=== PATIENT | male | born 1975 | race Caucasian/White ===

== ENCOUNTER → 2020-12-08 | Outpatient (CLI) | payer MEDICARE, MEDICAID ==
[~2020-12-08] MED LIST: HOLD METFORMIN - RECEIVED CONTRAST 20 ML VIAL IV SCH
[2020-12-08] MEDS: IOHEXOL 350 MG/ML 100 ML (OMNIPAQUE 350) VIAL IV ONE (09:29)
[2020-12-08] MEDS: CATHETER FLUSH 10 ML SYR IV PRN (09:30)
[2020-12-08] MEDS: NS 100 ML (IVPB) BAG IV ONE (09:30)
--- NOTE | 2020-12-08 11:07 | Diagnostic Imaging Report ---
PROCEDURE: CT abdomen and pelvis with contrast. TECHNIQUE: Multiple contiguous axial images were obtained through the abdomen and pelvis after administration of intravenous contrast. Auto Exposure Controls were utilized during the CT exam to meet ALARA standards for radiation dose reduction. All CT scans use one or more of the following dose optimizing techniques: automated exposure control, MA and/or KvP adjustment based on patient size and exam type or iterative reconstruction. INDICATION: Scrotal mass and possible hernia. No prior studies are available for comparison. Lung bases are clear. The liver and gallbladder are unremarkable. There is no biliary ductal dilatation. Pancreas and spleen are unremarkable. Left adrenal glands are unremarkable. Low density mass in the right adrenal gland is noted measuring 2.5 cm, most consistent with an adenoma. Right kidney is unremarkable. Left kidney contains a 2.9 cm low-attenuation lesion consistent with a cyst. No calculi or hydronephrosis is identified. Aorta is nonaneurysmal. No central retroperitoneal or mesenteric lymphadenopathy is detected. There is a large right inguinal hernia containing bowel loops. There appears to be a portion of the transverse colon entering the scrotal sac medially and exiting laterally. No definite strangulation is seen. There is no bowel obstruction. Small bowel loops are normal in caliber. There is no free fluid or fluid collection. Bladder is decompressed. Prostate is unremarkable. There are some mildly prominent iliac lymph nodes. A right external iliac node measures 2.4 x 1.5 cm. Left external iliac node measures 2.1 x 1.2 cm. Mildly prominent inguinal nodes are noted. The bony structures are nonacute. IMPRESSION: 1. Right adrenal low-density lesion suggestive of adenoma. 2. Left renal cyst. 3. Large right inguinal hernia with portions of the transverse colon entering the scrotal sac. No strangulation or bowel obstruction is identified. Dictated by: Dictated on workstation # [id number]
== END ==
LOC: RAD FS 08:57
PROVIDERS: ATTEND Surgery
DX: N50.89 Other specified disorders of the male genital organs (principal); E27.9 Disorder of adrenal gland, unspecified; N28.1 Cyst of kidney, acquired; K40.90 Unilateral inguinal hernia, without obstruction or gangrene, not specified as recurrent
CPT/HCPCS: 74177

== ENCOUNTER 2020-12-15 05:40 | Outpatient (CLI) | payer MEDICARE, MEDICAID ==
[~2020-12-15] VITALS: Ht 172.7 cm; Wt 150.6 kg
[2020-12-15] MEDS ORDERED: FLUT9.9S NS (12:46)
[2020-12-20] MEDS ORDERED: ACHYD1T PO (15:37)
== END 2020-12-15 12:48 | disposition home or self-care (01) ==
LOC: PREOP 05:40
PROVIDERS: ATTEND Surgery
DX: Z01.818 Encounter for other preprocedural examination (principal)

== ENCOUNTER 2020-12-20 09:09 | Day surgery (SDC) | payer MEDICARE, MEDICAID ==
[~2020-12-20] VITALS: Ht 172 cm; Wt 150.6 kg
[2020-12-20] VITALS (10 sets, daily range): BP systolic 106–136; BP diastolic 66–81
[~2020-12-20 09:09] MED LIST changes: +FLUT9.9S NS; -HOLD METFORMIN - RECEIVED CONTRAST 20 ML VIAL IV SCH
[2020-12-20] MEDS ORDERED: ceFAZolin 2 GM IV Premixed 50 ML IV ONE (09:15)
[2020-12-20] MEDS: LACTATED RINGERS 1,000 ML IV PRN ×2 (09:39→14:53)
[2020-12-20] MEDS ORDERED: LIDOCAINE/EPI 1%-1:100,000 (XYLOCAINE) 20ML ONE (10:19)
[2020-12-20] MEDS ORDERED: ROCURONIUM 10 MG/ML 5 ML SYRINGE IV ONE (13:53)
[2020-12-20] MEDS ORDERED: proPOfol 200 MG/20 ML (DIPRIVAN) VIAL IV ONE (13:53)
[2020-12-20] MEDS ORDERED: LIDOCAINE PF 2% 5 ML (XYLOCAINE) VIAL ONE (13:53)
[2020-12-20] MEDS ORDERED: LACTATED RINGERS 1,000 ML IV ONE (13:53)
[2020-12-20] MEDS ORDERED: ONDANSETRON 4 MG/2 ML (SDV) Z0FRAN ONE (13:53)
[2020-12-20] MEDS ORDERED: fentaNYL INJ 100 MCG/2 ML AMP ONE (13:54)
[2020-12-20] MEDS ORDERED: MIDAZOLAM 2 MG/2 ML (VERSED) VIAL ONE (13:54)
--- NOTE | 2020-12-20 14:08 | Progress Note-Pre Operative ---
Pre-Operative Progress Note H&P Reviewed The H&P was reviewed, patient examined and no changes noted. Time Seen by Provider: 13:31 Date H&P Reviewed: Dec 20, 2020 Time H&P Reviewed: 13:31 Pre-Operative Diagnosis: Incarcerated right inguinal hernia, site marked ALFONZO BERRY DO Dec 20, 2020 14:08
[2020-12-20] MEDS ORDERED: SEVOFLURANE (ULTANE) 15 ML INHAL SOLN ONE (15:12)
--- NOTE | 2020-12-20 15:36 | Progress Note-Post Operative ---
Post-Operative Progess Note Surgeon (s)/Weight Calculator (s) Surgeon ALFONZO BERRY DO Weight Calculator: [place] Pre-Operative Diagnosis Incarcerated right inguinal hernia, site marked Post-Operative Diagnosis Same Transverse colon and omentum in hernia with ischemic omentum Procedure & Operative Findings Date of Procedure 12/20/20 Procedure Performed/Findings Open Right inguinal hernia repair with almost total omentectomy DESCRIPTION OF PROCEDURE: The patient was taken to the operating suite, was prepped and draped in sterile fashion. Surgical pause was performed, site marked and agreed on. Local anesthetic was infiltrated in the right lower quadrant. Incision was made with a #15 blade and cautery used to dissect down to the external oblique, which was then opened down through the external ring. A very large firm cord was found, went into the hernia sac and started to reduce it. Had to use the Ligasure to come across some of the large vessels in the omentum. It took about 10-15 minutes of gentle pressure to deliver the hernia contents. It was the entire transverse colon and omentum. Omentum was ischemic in some parts and in "tatters"; elected to remove it completely with the Ligasure. This actually helped us push the colon back into the abdomen. Pt was also in trendelenberg to help get the colon back into the abdomen. The spermatic cord was then dissected around. A [place] drain was placed around it and there was a weakness in the floor present. The indirect hernia was then dissected off of spermatic cord. It was so large and deep into scrotum, elected to transect it. We also got out copious amounts of fluid from the scrotum. The hernia sac was then closed with a pursestring 0-Vicryl and then ligated with an 0-Vicryl. Using ProGrip right sidede mesh, this was secured at Dimitri's ligament and then incorporated around the spermatic cord and placed under the external oblique. Hemostasis was achieved. The external oblique was then closed recreating the external ring and then the subcutaneous tissues were then reapproximated using 3-0 Vicryl and skin was then closed using 4-0 Monocryl in a subcuticular fashion. The abdomen was then washed and dried and Skin Affix was placed over the incision. The patient tolerated procedure well without any complications and taken to recovery room in stable condition. Dr. Vickers assisted on this case helping to identify anatomy, hold anatomy out of the way and close incisions. Anesthesia Type GET Estimated Blood Loss Estimated blood loss (mL): minimal Specimens/Packing Specimens Removed omentum (hernia contents) hernia sac ALFONZO BERRY DO Dec 20, 2020 15:36
[2020-12-20] MEDS ORDERED: ACHYD1T PO (15:37)
--- NOTE | 2020-12-20 15:39 | Discharge Inst-Surgical ---
Discharge Inst-Surgical Depart Medication/Instructions New, Converted or Re-Newed RX: RX Given to Pt/Family Patient Instructions Follow up Appt: Make appointment for 1 week. [phone] Instructions: No lifting greater than 20 pounds. No strenuous activity. May shower in 24 hours, no tub bath or soaking. Use incentive spirometer at home as directed. No Smoking Skin/Wound Care: May remove bandages in am. You need to leave the Dermabond on incision it will fall off on it's own. Symptoms to Report: Appetite Changes, Extremity Discoloration, Numbness/Tingling, Swelling Increased, Bleeding Excessive, Eyesight Changes, Pain Increased, Urine Color Change, Constipation(Persistent), Fever over 101 degree F, Pain/Pressure in chest, Urinating Difficulty, Cough Up/Vomit Blood, Heart Beat Irreg/Pounding, Pain/Pressure in jaw, Cramps in feet or legs, Lightheadedness, Pain/Pressure in shoulder, Diarrhea(Persistent), Memory Changes Suddenly, Questions/Concerns, Weight gain consecutive days, Dizziness/Fainting, Nausea/Vomiting, Shortness of Breath, Weight gain over 2 pounds If questions or concerns contact your physician Or seek help at emergency department. Activity Activity as Tolerated: Yes Activity Instructions: Avoid Stress to Incision Driving Instructions: No Driving/Refer to Dr. Morales Discharge Diet: No Restrictions Diet After 24 Hours: Clear Liquid if Nauseous If Any Problems/Questions/Issu: Contact Your Physician Skin/Wound Care Infection Signs and Symptoms: Increased Redness, Foul Odor of Wound, Increased Drainage, Skin Itchy or Has a Rash, Increased Swelling, Temperature Above 101 F Bathing Instructions: Shower Stitches/Emilia/Dermabond Dis: ALFONZO Grewal DO Dec 20, 2020 15:39
[2020-12-20] MEDS ORDERED: morphine INJ 10 MG/ML 1ML (SYR OR VIAL) IVP ONE (15:45)
[2020-12-20] MEDS ORDERED: PROMETHAZINE INJ 25 MG/ML (PHENERGAN) AMP IVP ONE (15:45)
[2020-12-20] MEDS ORDERED: HYDROmorphone 2 MG/ML VIAL (DILAUDID) IV ONE (15:45)
[2020-12-20] MEDS ORDERED: ONDANSETRON 4 MG/2 ML (SDV) Z0FRAN IVP PRN (15:45)
--- NOTE | 2020-12-20 15:58 | Anesthesia-General Post-Op ---
General Patient Condition Mental Status/LOC: Same as Preop Cardiovascular: Satisfactory Nausea/Vomiting: Absent Respiratory: Satisfactory Pain: Controlled Complications: Absent Post Op Complications Complications None Follow Up Care/Instructions Patient Instructions None needed. Anesthesia/Patient Condition Patient Condition Patient is doing well, no complaints, stable vital signs, no apparent adverse anesthesia problems. No complications reported per nursing. ELENI FOSTER CRNA Dec 20, 2020 15:58
== END 2020-12-20 17:25 ==
LOC: SDC 09:09
PROVIDERS: ATTEND Surgery
DX: K40.31 Unilateral inguinal hernia, with obstruction, without gangrene, recurrent (principal); I99.8 Other disorder of circulatory system; E66.01 Morbid (severe) obesity due to excess calories; Z68.43 Body mass index [BMI] 50.0-59.9, adult; Z79.899 Other long term (current) drug therapy; Z80.9 Family history of malignant neoplasm, unspecified
CPT/HCPCS: 49507; 87081; 88302; C1781

== ENCOUNTER 2022-05-18 18:28 | Emergency (ER) | payer MEDICARE, MEDICAID ==
[~2022-05-18] VITALS: Ht 170.1 cm; Wt 150.6 kg
[~2022-05-18 18:28] MED LIST changes: +ACHYD1T PO
--- NOTE | 2022-05-18 18:35 | ED GI ---
General Stated Complaint: LRQ PAIN History of Present Illness Date Seen by Provider: May 18, 2022 Time Seen by Provider: 18:34 Initial Comments 46-year-old male with no significant PMH is here with complaints of right lower quadrant pain which began last night. Patient states that the pain is a 3/10 and is constant in nature. Patient is able to eat his meals with no difficulty. Denies fever, nausea and vomiting, diarrhea or constipation, chest pain. Allergies and Home Medications Allergies Coded Allergies: No Known Drug Allergies (Unverified , 12/20/20) Patient Home Medication List Home Medication List Reviewed: Yes Fluticasone Propionate (Flonase Allergy Relief) 9.9 Ml [place].susp, 1 SPRAY NS DAILY PRN for nasal congestion, (Reported) Entered as Reported by: ABHINAV ELIAS on 12/15/20 1246 Hydrocodone Bit/Acetaminophen (HYDROcodone/APAP 10/325 TABLET) 1 Ea Tab, 1 TAB PO Q6H Prescribed by: ALFONZO BERRY on 12/20/20 1537 Review of Systems Review of Systems Constitutional: no symptoms reported EENTM: No Symptoms Reported Respiratory: No Symptoms Reported Cardiovascular: No Symptoms Reported Gastrointestinal: See HPI, Abdominal Pain Genitourinary: No Symptoms Reported Musculoskeletal: no symptoms reported Skin: no symptoms reported Psychiatric/Neurological: No Symptoms Reported Endocrine: No Symptoms Reported Hematologic/Lymphatic: No Symptoms Reported Past Kzinvfw-Skeyfw-Gvzdqs Hx Seasonal Allergies Seasonal Allergies: Yes Past Medical History Surgeries: No Respiratory: No Cardiac: No Neurological: No Genitourinary: No Gastrointestinal: No Musculoskeletal: No Endocrine: No HEENT: No Cancer: No Psychosocial: No Integumentary: No Blood Disorders: No Physical Exam Vital Signs Vital Signs - First Documented 05/18/22 18:32 Temp 36.2 Pulse 109 Resp 16 B/P (MAP) 142/75 (97) Pulse Ox 96 O2 Delivery Room Air Capillary Refill : Height/Weight/BMI Height: '" Weight: lbs. oz. kg; 50.90 BMI Method: General Appearance: WD/WN, no apparent distress HEENT: PERRL/EOMI Neck: non-tender, full range of motion Respiratory: chest non-tender, lungs clear, normal breath sounds Cardiovascular: regular rate, rhythm Gastrointestinal: normal bowel sounds, soft, no organomegaly, tenderness (RLQ ) Extremities: normal range of motion Back: normal inspection, no CVA tenderness Neurologic/Psychiatric: alert, oriented x 3 Skin: normal color Lymphatic: no adenopathy Progress/Results/Core Measures Results/Orders Lab Results Laboratory Tests Test 05/18/22 18:40 05/18/22 19:23 Range/Units White Blood Count 15.1 H 4.3-11.0 10^3/uL Red Blood Count 4.76 4.30-5.52 10^6/uL Hemoglobin 13.7 13.3-17.7 g/dL Hematocrit 41 40-54 % Mean Corpuscular Volume 85 80-99 fL Mean Corpuscular Hemoglobin 29 25-34 pg Mean Corpuscular Hemoglobin Concent 34 32-36 g/dL Red Cell Distribution Width 13.2 10.0-14.5 % Platelet Count 177 130-400 10^3/uL Mean Platelet Volume 9.0 9.0-12.2 fL Immature Granulocyte % (Auto) 0 % Neutrophils (%) (Auto) 78 H 42-75 % Lymphocytes (%) (Auto) 15 12-44 % Monocytes (%) (Auto) 6 0-12 % Eosinophils (%) (Auto) 0 0-10 % Basophils (%) (Auto) 0 0-10 % Neutrophils # (Auto) 11.7 H 1.8-7.8 10^3/uL Lymphocytes # (Auto) 2.3 1.0-4.0 10^3/uL Monocytes # (Auto) 1.0 0.0-1.0 10^3/uL Eosinophils # (Auto) 0.1 0.0-0.3 10^3/uL Basophils # (Auto) 0.0 0.0-0.1 10^3/uL Immature Granulocyte # (Auto) 0.0 0.0-0.1 10^3/uL Neutrophils % (Manual) 82 % Lymphocytes % (Manual) 14 % Monocytes % (Manual) 4 % Sodium Level 140 135-145 MMOL/L Potassium Level 3.6 3.6-5.0 MMOL/L Chloride Level 102 98-107 MMOL/L Carbon Dioxide Level 27 21-32 MMOL/L Anion Gap 11 5-14 MMOL/L Blood Urea Nitrogen 8 7-18 MG/DL Creatinine 0.93 0.60-1.30 MG/DL Estimat Glomerular Filtration Rate 103 BUN/Creatinine Ratio 9 Glucose Level 135 H 70-105 MG/DL Calcium Level 9.3 8.5-10.1 MG/DL Corrected Calcium 9.3 8.5-10.1 MG/DL Total Bilirubin 1.1 H 0.1-1.0 MG/DL Aspartate Amino Transf (AST/SGOT) 10 5-34 U/L Alanine Aminotransferase (ALT/SGPT) 10 0-55 U/L Alkaline Phosphatase 7 L 40-136 U/L Total Protein 7.3 6.4-8.2 GM/DL Albumin 4.0 3.2-4.5 GM/DL Lipase 15 8-78 U/L Urine Color DARK YELLOW Urine Clarity SLIGHTLY CLOUDY Urine pH 7.5 5-9 Urine Specific [place] 1.020 1.016-1.022 Urine Protein NEGATIVE NEGATIVE Urine Glucose (UA) NEGATIVE NEGATIVE Urine Ketones NEGATIVE NEGATIVE Urine Nitrite NEGATIVE NEGATIVE Urine Bilirubin NEGATIVE NEGATIVE Urine Urobilinogen 4.0 < = 1.0 MG/DL Urine Leukocyte Esterase NEGATIVE NEGATIVE Urine RBC (Auto) TRACE-I H NEGATIVE Urine RBC 2-5 H /HPF Urine WBC NONE /HPF Urine Squamous Epithelial Cells NONE /HPF Urine Crystals PRESENT H /LPF Urine Amorphous Sediment LARGE [place] PHOSPHATE H /LPF Urine Bacteria MODERATE H /HPF Urine Casts NONE /LPF Urine Mucus LARGE H /LPF Urine Culture Indicated YES Urine Opiates Screen POSITIVE H NEGATIVE Urine Oxycodone Screen NEGATIVE NEGATIVE Urine Methadone Screen NEGATIVE NEGATIVE Urine Propoxyphene Screen NEGATIVE NEGATIVE Urine Barbiturates Screen NEGATIVE NEGATIVE Ur Tricyclic Antidepressants Screen NEGATIVE NEGATIVE Urine Phencyclidine Screen NEGATIVE NEGATIVE Urine Amphetamines Screen NEGATIVE NEGATIVE Urine Methamphetamines Screen NEGATIVE NEGATIVE Urine Benzodiazepines Screen NEGATIVE NEGATIVE Urine Cocaine Screen NEGATIVE NEGATIVE Urine Cannabinoids Screen NEGATIVE NEGATIVE My Orders Orders - PHILLIP OVALLE MD Cbc With Automated Diff (05/18/22 18:35) Comprehensive Metabolic Panel (05/18/22 18:35) Drug Screen Stat (Urine) (05/18/22 18:35) Lipase (05/18/22 18:35) Ua Culture If Indicated (05/18/22 18:35) Manual Differential (05/18/22 18:40) Ct Abdomen/Pelvis W (05/18/22 19:09) Iohexol Injection (Omnipaque 350 Mg/Ml 1 (05/18/22 19:30) Received Contrast (Hold Metformin- Contr (05/18/22 19:30) Sodium Chloride Flush (Catheter Flush Sy (05/18/22 19:30) Ns (Ivpb) (Sodium Chloride 0.9% Ivpb Bag (05/18/22 19:30) Urine Culture (05/18/22 19:23) Medications Given in ED Current Medications Medications Dose Ordered Sig/Bo Route Start Time Stop Time Status Last Admin Dose Admin Iohexol 100 ml ONCE ONCE IV 05/18/22 19:30 05/18/22 19:31 DC 05/18/22 19:35 100 ML Sodium Chloride 10 ml NEEDED PRN IV 05/18/22 19:30 05/18/22 19:35 10 ML Sodium Chloride 100 ml ONCE ONCE IV 05/18/22 19:30 05/18/22 19:31 DC 05/18/22 19:35 100 ML Vital Signs/I&O 05/18/22 18:32 Temp 36.2 Pulse 109 Resp 16 B/P (MAP) 142/75 (97) Pulse Ox 96 O2 Delivery Room Air Progress Progress Note : Progress Note 1. RLQ PAIN: INFLAMMATORY BOWEL SYNDROME: CROHN'S - CT ABD & PELVIS:Abnormal loop of distal ileum in the right lower abdominal quadrant, as described above. This does raise concern for underlying inflammatory bowel disease such as Crohn's. - CBC/ CMP/ Lipase: normal - UA: RBC positive - UDS:negative - NS IVF - Toradol 15mg iv STAT -Advised patient to follow-up with PCP within the next 3 to 7 days, and also to make a GI specialist appointment for follow-up. -The patient was seen in the ED, and treated appropriately to presentation at a specific point in time. Patient is informed that there is a possibility that disease and illness can evolve and change in acuity rapidly or slowly after patient is discharged from the ER. Precautionary advice given to the patient for immediate return to ER if symptoms worsen or do not resolve, and to seek emergency care sooner rather than later. Pt also advised on the importance of PCP follow up and compliance with management and follow up plan with PCP and/or specialist, as this is part of the management plan. Pt verbally expressed understanding. Diagnostic Imaging Diagonstic Imaging: CT Plain Films/CT/US/NM/MRI: abdomen Comments NAME: JAHAIRA [facility]ERSON [facility] REC#: [id number] PT STATUS: REG ER : 1975 PHYSICIAN: PHILLIP OVALLE MD ADMIT DATE: 05/18/22/ER FS Draft Date of Exam:05/18/22 CT ABDOMEN/PELVIS W PROCEDURE: CT abdomen and pelvis with contrast. TECHNIQUE: Multiple contiguous axial images were obtained through the abdomen and pelvis after administration of intravenous contrast. Auto Exposure Controls were utilized during the CT exam to meet ALARA standards for radiation dose reduction. All CT scans use one or more of the following dose optimizing techniques: automated exposure control, MA and/or KvP adjustment based on patient size and exam type or iterative reconstruction. INDICATION: Right lower quadrant abdominal pain. COMPARISON: 12/08/2020. FINDINGS: Included portions of the lung bases show mild dependent atelectasis. CT ABDOMEN: Abnormal loop of small bowel is identified within the right abdominal quadrant and appears to represent distal ileum. There is moderate abnormal small bowel wall thickening. Small bowel wall measures 7 mm (image 138, series 3). There is also moderate stranding of the surrounding mesenteric fat. A few mildly prominent loops of small bowel are also noted within the left hemipelvis, but otherwise small bowel loops are nondilated. There is no pneumatosis, pneumoperitoneum or portal venous gas. Additionally, there is no loculated fluid collection or significant free fluid. Normal appendix is identified. Benign-appearing left renal cyst is present. Right adrenal nodule measures 2.8 x 2.1 cm. This is in comparison to 2.5 x 2.0 cm on prior exam dated 12/08/2020. Otherwise, kidneys, left adrenal gland, spleen, pancreas and liver have a normal CT appearance. A few prominent mesenteric lymph nodes are noted within the right lower abdominal quadrant. No abnormal retroperitoneal adenopathy is seen. Osseous structures show no acute abnormality. CT PELVIS: Urinary bladder is unopacified. No calculi are seen within the urinary bladder. Fat-containing right inguinal hernia is identified. Several mildly prominent bilateral inguinal and iliac chain lymph nodes are identified. Reference iliac chain lymph node on the right measures 1.0 x 2.5 cm. Previously, this measured 1.5 x 2.4 cm. No acute osseous abnormality is seen. There is no free fluid, loculated fluid collection or free air. IMPRESSION: 1. Abnormal loop of distal ileum in the right lower abdominal quadrant, as described above. This does raise concern for underlying inflammatory bowel disease such as Crohn's. A few mildly prominent loops of small bowel are seen proximally, but there is otherwise no convincing evidence of obstruction. 2. No pneumatosis, pneumoperitoneum or portal venous gas. 3. Right adrenal nodule, as described above. Further characterization with dedicated renal protocol CT is recommended and could be performed on a nonemergent basis. 4. Persistent prominent iliac chain adenopathy. Dictated on workstation # [id number] Dict: 05/18/221950 Trans: 05/18/222010 [facility] [id number] Interpreted by: FRANCESCA HENDRICKSON MD Electronically signed by: Departure Impression Primary Impression: Inflammatory bowel syndrome Additional Impression: Crohns disease of small intestine Qualified Codes: K50.00 - Crohn's disease of small intestine without complications Disposition: 01 HOME, SELF-CARE Condition: Stable Departure-Patient Inst. Referrals: BENJA NJ MD (PCP) Primary Care Physician Patient Instructions: Crohn's Disease (DC), Inflammatory Bowel Disease (DC) Add. Discharge Instructions: -Advised patient to follow-up with PCP within the next 3 to 7 days, and also to make a GI specialist appointment for follow-up. PHILLIP OVALLE MD May 18, 2022 18:35
[2022-05-18 18:45] LABS: BASOPHILS % (AUTO) 0 % (0-10); EOSINOPHILS # (AUTO) 0.1 10^3/uL (0.0-0.3); EOSINOPHILS % (AUTO) 0 % (0-10); HEMATOCRIT 41 % (40-54); HEMOGLOBIN 13.7 g/dL (13.3-17.7); LYMPHOCYTES # (AUTO) 2.3 10^3/uL (1.0-4.0); LYMPHOCYTES % (AUTO) 15 % (12-44); MEAN CORPUSCULAR HEMOGLOBIN 29 pg (25-34); MEAN CORPUSCULAR HGB CONC 34 g/dL (32-36); MEAN CORPUSCULAR VOLUME 85 fL (80-99); MONOCYTES % (AUTO) 6 % (0-12); NEUTROPHILS # (AUTO) 11.7 10^3/uL (1.8-7.8); NEUTROPHILS % (AUTO) 78 % (42-75); PLATELET COUNT 177 10^3/uL (130-400); WHITE BLOOD COUNT 15.1 10^3/uL (4.3-11.0)
[2022-05-18 19:05] LABS: BILIRUBIN,TOTAL 1.1 MG/DL (0.1-1.0); CALCIUM 9.3 MG/DL (8.5-10.1); CREATININE SERUM 0.93 MG/DL (0.60-1.30); POTASSIUM 3.6 MMOL/L (3.6-5.0); TOTAL PROTEIN 7.3 GM/DL (6.4-8.2)
[2022-05-18 19:27] LABS: BILIRUBIN,URINE NEGATIVE (NEGATIVE); GLUCOSE, URINE (UA) NEGATIVE (NEGATIVE); KETONES,URINE NEGATIVE (NEGATIVE); LEUKOCYTE ESTERASE ,URINE NEGATIVE (NEGATIVE); NITRITE,URINE NEGATIVE (NEGATIVE); PH,URINE 7.5 (5-9); PROTEIN,URINE NEGATIVE (NEGATIVE)
[2022-05-18] MEDS ORDERED: CATHETER FLUSH 10 ML SYR IV PRN (19:30)
[2022-05-18] MEDS ORDERED: HOLD METFORMIN - RECEIVED CONTRAST 20 ML VIAL IV SCH (19:30)
[2022-05-18] MEDS ORDERED: IOHEXOL 350 MG/ML 100 ML (OMNIPAQUE 350) VIAL IV ONE (19:30)
[2022-05-18] MEDS ORDERED: NS 100 ML (IVPB) BAG IV ONE (19:30)
[2022-05-18 19:31] LABS: AMORPHOUS SEDIMENT,UR LARGE AMOR PHOSPHATE /LPF; BACTERIA,URINE MODERATE /HPF; CLARITY,URINE SLIGHTLY CLOUDY; COLOR,URINE DARK YELLOW
[2022-05-18 19:50] LABS: LYMPHOCYTES % (MANUAL) 14 %; NEUTROPHILS % (MANUAL) 82 %
[2022-05-18 19:51] LABS: MONOCYTES % (MANUAL) 4 %
[2022-05-18 20:02] LABS: AMPHETAMINE SCREEN, URINE NEGATIVE (NEGATIVE); BARBITURATE SCREEN URINE NEGATIVE (NEGATIVE); BENZODIAZEPINES SCREEN URINE NEGATIVE (NEGATIVE); CANNABINOID SCREEN, URINE NEGATIVE (NEGATIVE); COCAINE SCREEN URINE NEGATIVE (NEGATIVE); METHADONE STAT NEGATIVE (NEGATIVE); OPIATE SCREEN URINE POSITIVE (NEGATIVE); OXYCODONE STAT NEGATIVE (NEGATIVE); PROPOXYPHENE STAT NEGATIVE (NEGATIVE); TRICYCLIC ANTIDEPRESSANTS SCRE NEGATIVE (NEGATIVE)
--- NOTE | 2022-05-18 20:13 | Diagnostic Imaging Report ---
PROCEDURE: CT abdomen and pelvis with contrast. TECHNIQUE: Multiple contiguous axial images were obtained through the abdomen and pelvis after administration of intravenous contrast. Auto Exposure Controls were utilized during the CT exam to meet ALARA standards for radiation dose reduction. All CT scans use one or more of the following dose optimizing techniques: automated exposure control, MA and/or KvP adjustment based on patient size and exam type or iterative reconstruction. INDICATION: Right lower quadrant abdominal pain. COMPARISON: 12/08/2020. FINDINGS: Included portions of the lung bases show mild dependent atelectasis. CT ABDOMEN: Abnormal loop of small bowel is identified within the right abdominal quadrant and appears to represent distal ileum. There is moderate abnormal small bowel wall thickening. Small bowel wall measures 7 mm (image 138, series 3). There is also moderate stranding of the surrounding mesenteric fat. A few mildly prominent loops of small bowel are also noted within the left hemipelvis, but otherwise small bowel loops are nondilated. There is no pneumatosis, pneumoperitoneum or portal venous gas. Additionally, there is no loculated fluid collection or significant free fluid. Normal appendix is identified. Benign-appearing left renal cyst is present. Right adrenal nodule measures 2.8 x 2.1 cm. This is in comparison to 2.5 x 2.0 cm on prior exam dated 12/08/2020. Otherwise, kidneys, left adrenal gland, spleen, pancreas and liver have a normal CT appearance. A few prominent mesenteric lymph nodes are noted within the right lower abdominal quadrant. No abnormal retroperitoneal adenopathy is seen. Osseous structures show no acute abnormality. CT PELVIS: Urinary bladder is unopacified. No calculi are seen within the urinary bladder. Fat-containing right inguinal hernia is identified. Several mildly prominent bilateral inguinal and iliac chain lymph nodes are identified. Reference iliac chain lymph node on the right measures 1.0 x 2.5 cm. Previously, this measured 1.5 x 2.4 cm. No acute osseous abnormality is seen. There is no free fluid, loculated fluid collection or free air. IMPRESSION: 1. Abnormal loop of distal ileum in the right lower abdominal quadrant, as described above. This does raise concern for underlying inflammatory bowel disease such as Crohn's. A few mildly prominent loops of small bowel are seen proximally, but there is otherwise no convincing evidence of obstruction. 2. No pneumatosis, pneumoperitoneum or portal venous gas. 3. Right adrenal nodule, as described above. Further characterization with dedicated renal protocol CT is recommended and could be performed on a nonemergent basis. 4. Persistent prominent iliac chain adenopathy. Dictated by: Dictated on workstation # [id number]
[2022-05-18] MEDS ORDERED: KETOROLAC 30 MG/ML VIAL IVP ONE (21:15)
[2022-05-18 21:16] VITALS: BP 138/82
== END 2022-05-18 21:16 | disposition home or self-care (01) ==
LOC: EDUNIT# 18:28 → ER FS 18:29
DX: K50.00 Crohn's disease of small intestine without complications (principal); Z28.310 Unvaccinated for COVID-19
CPT/HCPCS: 36415; 74177; 80053; 80306; 81000; 83690; 85007; 85027; 87088

== ENCOUNTER 2022-08-14 06:00 | Outpatient (CLI) | payer MEDICARE, MEDICAID ==
[~2022-08-14] VITALS: Ht 175.3 cm; Wt 145.2 kg
== END 2022-08-14 16:50 | disposition home or self-care (01) ==
LOC: PREOP 06:00
PROVIDERS: ATTEND Surgery
DX: Z01.818 Encounter for other preprocedural examination (principal)

== ENCOUNTER 2022-08-26 09:12 | Day surgery (SDC) | payer MEDICARE, MEDICAID ==
[~2022-08-26] VITALS: Ht 175 cm; Wt 145.2 kg
[~2022-08-26 09:12] MED LIST changes: +LACTATED RINGERS 1,000 ML IV STA
[2022-08-26 09:25] VITALS: BP 154/86
--- NOTE | 2022-08-26 09:26 | Progress Note-Pre Operative ---
Pre-Operative Progress Note Date of Available H&P: Aug 06, 2022 Date H&P Reviewed: Aug 26, 2022 Time H&P Reviewed: 09:25 History & Physical: H&P Reviewed, Patient Examed, No changes noted Pre-Operative Diagnosis: Screening colon, Family hx of colon CA ALFONZO BERRY DO Aug 26, 2022 09:26
[2022-08-26] MEDS ORDERED: PROPOFOL INJECTION 50 ML IV ONE (09:28)
[2022-08-26] MEDS ORDERED: MIDAZOLAM 2 MG/2 ML (VERSED) VIAL ONE (09:28)
--- NOTE | 2022-08-26 09:56 | Progress Note-Post Operative ---
Post-Operative Progess Note Surgeon (s)/Manager Quality (s) Surgeon ALFONZO BERRY DO Manager Quality: ILEANA KasperII Pre-Operative Diagnosis Screening colon, Family hx of colon CA Post-Operative Diagnosis Int Hemorrhoids Procedure & Operative Findings Date of Procedure 08/26/22 Procedure Performed/Findings Colonoscopy PROCEDURE NOTE: After informed consent was obtained, the patient was brought to the endoscopy suite, placed in bed in left lateral decubitus position. He was administered IV sedation by the CARDIOTHORACIC SURGEON who then monitored his vitals the entire time, heart rate, blood pressure and pulse ox and the scope was inserted, pushed all the way to about 150 cm and pushed into the cecum, took a picture of appendiceal orifice and noted the ileocecal valve. Then slowly withdrew the scope insufflating to look circumferentially at the osulilvan starting in the cecum, up the ascending colon to the hepatic flexure, then down the transverse colon, splenic flexure, into the descending colon down in the sigmoid and then into the rectal vault and retroflexed the scope. Took picture of the internal hemorrhoids. The patient tolerated the procedure. He was recovered in endoscopy suite. Recommended for repeat colonoscopy in 10 years. Anesthesia Type IV sedation by CARDIOTHORACIC SURGEON Estimated Blood Loss Estimated blood loss (mL): scant Specimens/Packing Specimens Removed none ALFONZO BERRY DO Aug 26, 2022 09:56
--- NOTE | 2022-08-26 09:57 | Endoscopy Discharge Instruct ---
Endo Procedure/Findings Findings 1.: Internal Hemorrhoids Discharge Instructions - Activity: You might feel a little sleepy until tomorrow. This is due to the me dicine you received to relax you. Until tomorrow, you should: NOT drive a car, operate machinery or power tools. NOT drink any alcoholic beverages. NOT make any important decisions or sign importortant papers. Do not return to work until tomorrow, unless otherwise instructed. Resume previous activities tomorrow. Diet: Start by taking liquids. If you tolerate liquids, advance to solid food. 1.: Colonscopy in 10 years Notify Physician - If you experience excessive bleeding, unusual abdominal pain, fever, or chest pain, contact your doctor immediately. ALFONZO BERRY DO Aug 26, 2022 09:57
[2022-08-26 09:58] VITALS: BP 131/77
[2022-08-26 10:03] VITALS: BP 119/62
[2022-08-26 10:08] VITALS: BP 118/65
[2022-08-26 10:29] VITALS: BP 118/65
--- NOTE | 2022-08-26 11:56 | Anesthesia-General Post-Op ---
MAC Patient Condition Mental Status/LOC: Same as Preop Cardiovascular: Satisfactory Nausea/Vomiting: Absent Respiratory: Satisfactory Pain: Controlled Complications: Absent Post Op Complications Complications None Follow Up Care/Instructions Patient Instructions None needed. Anesthesiology Discharge Order Discharge Order Patient is doing well, no complaints, stable vital signs, no apparent adverse anesthesia problems. No complications reported per nursing. ELENI FOSTER CRNA Aug 26, 2022 11:56
== END 2022-08-26 10:33 | disposition home or self-care (01) ==
LOC: ENDO 09:12
PROVIDERS: ATTEND Surgery
DX: Z12.11 Encounter for screening for malignant neoplasm of colon (principal); K64.8 Other hemorrhoids; Z80.0 Family history of malignant neoplasm of digestive organs; Z28.310 Unvaccinated for COVID-19; E66.9 Obesity, unspecified; Z68.42 Body mass index [BMI] 45.0-49.9, adult

== ENCOUNTER 2023-06-05 23:01 | Emergency (ER) | payer OTHER, MEDICARE, MEDICAID ==
[~2023-06-05] VITALS: Ht 170 cm; Wt 142.7 kg
[~2023-06-05 23:01] MED LIST changes: -LACTATED RINGERS 1,000 ML IV STA
[2023-06-05 23:05] VITALS: BP 165/110
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
--- NOTE | 2023-06-06 07:08 | Diagnostic Imaging Report ---
FINGER(S) INDICATION: Left thumb injury COMPARISON: None available. TECHNIQUE: 3 views of the left thumb FINDINGS: No acute fracture. There are few normal sesamoids at the level of the thumb MCP. No radiopaque foreign body or soft tissue gas. IMPRESSION: No acute fracture. Dictated by: Dictated on workstation # [id number]
== END 2023-06-06 00:18 | disposition home or self-care (01) ==
LOC: EDUNIT# 23:01 → ER FS 23:03
DX: S66.212A Strain of extensor muscle, fascia and tendon of left thumb at wrist and hand level, initial encounter (principal); V89.2XXA Person injured in unspecified motor-vehicle accident, traffic, initial encounter; Y92.410 Unspecified street and highway as the place of occurrence of the external cause
CPT/HCPCS: 73140